=== PATIENT | female | born 1980 | race Caucasian/White ===

== ENCOUNTER 2017-11-07 01:24 | Inpatient (IN) | payer OTHER ==
[~2017-11-07] VITALS: Ht 165.1 cm; Wt 79.1 kg
[2017-11-07] MEDS ORDERED: D5%-LACTATED RINGERS 1,000 ML IV SCH (01:45)
[2017-11-07] MEDS ORDERED: OXYTOCIN 30U/ 0.9% NaCL 500ML 500 ML IV ONE (01:45)
[2017-11-07] MEDS: LACTATED RINGERS 1,000 ML IV SCH ×2 (01:50→02:02)
[2017-11-07] MEDS ORDERED: NEWBORN KIT ONE (01:57)
[2017-11-07] MEDS ORDERED: OXYTOCIN 30U/ 0.9% NaCL 500ML 500 ML ONE ×2 (01:57→06:00)
[2017-11-07] MEDS ORDERED: LIDOCAINE 1%, 20ML ONE (01:57)
[2017-11-07] MEDS ORDERED: MISOPROSTOL 200 MCG TABLET ONE (01:57)
[2017-11-07] MEDS ORDERED: FENTANYL PF 100 MCG/2ML IV PRN (02:00)
[2017-11-07] MEDS ORDERED: ONDANSETRON 2MG/ML, 2ML IVPush PRN (02:00)
[2017-11-07] MEDS ORDERED: TERBUTALINE 1 MG/ML, 1ML IVPush PRN (02:00)
[2017-11-07] MEDS ORDERED: CALCIUM CARBONATE 500 MG TAB.CHEW PO PRN (02:00)
[2017-11-07] MEDS ORDERED: FENTANYL PF 100 MCG/2ML IVPush PRN (02:00)
[2017-11-07] MEDS ORDERED: ALUMINUM/MAG/SIMETHICONE 30 ML UDC PO PRN (02:00)
[2017-11-07] MEDS ORDERED: SODIUM CITRATE/CITRIC ACID 30 ML UDC PO PRN (02:00)
[2017-11-07] MEDS ORDERED: PENICILLIN GK 5,000,000 UNITS in SODIUM CHLORIDE 0.9% 100 ML IVPB ONE (02:00)
[2017-11-07] MEDS ORDERED: METOCLOPRAMIDE 5 MG/ML, 2ML IVPush PRN (02:00)
[2017-11-07 02:27] VITALS: BP 131/72
[2017-11-07 02:32] LABS: BASOPHILS # (AUTO) 0.02 x10^3/uL (0-0.1); BASOPHILS % (AUTO) 0 % (0-1); EOSINOPHILS # (AUTO) 0.05 x10^3/uL (0-0.4); EOSINOPHILS % (AUTO) 1 % (1-7); LYMPHOCYTES % (AUTO) 13 % (22-44); MD NO; MEAN CORPUSCULAR HEMOGLOBIN 31.2 pg (27.0-34.8); MEAN CORPUSCULAR HGB CONC 33.9 g/dL (32.4-35.8); MEAN PLATELET VOLUME 8.9 fL (7.4-10.4); MONOCYTES # (AUTO) 0.83 x10^3/uL (0.2-0.8); MONOCYTES % (AUTO) 10 % (2-9); NEUTROPHILS # (AUTO) 6.47 x10^3/uL (1.8-6.8); NEUTROPHILS % (AUTO) 76 % (42-75); PLATELET COUNT 161 x10^3/uL (130-400); RED BLOOD COUNT 4.25 x10^6/uL (3.82-5.3); RED CELL DISTRIBUTION WIDTH 13.2 % (9.6-15.2)
[2017-11-07] MEDS ORDERED: IBUPROFEN 600 MG TABLET ONE (05:56)
[2017-11-07] MEDS ORDERED: OXYcodone/APAP 5/325MG TABLET PO PRN ×2 (06:00)
[2017-11-07] MEDS ORDERED: MISOPROSTOL 200 MCG TABLET PR PRN (06:00)
[2017-11-07] MEDS ORDERED: ONDANSETRON 2MG/ML, 2ML IV PRN (06:00)
[2017-11-07] MEDS ORDERED: DOCUSATE 100 MG CAPSULE PO PRN (06:00)
[2017-11-07] MEDS ORDERED: PENICILLIN GK 2,500,000 UNITS in DEXTROSE 5% 100 ML IV SCH (06:00)
[2017-11-07] MEDS ORDERED: METHYLERGONOVINE 0.2 MG/ML IM PRN (06:00)
[2017-11-07] MEDS ORDERED: ACETAMINOPHEN 325 MG TABLET PO PRN ×2 (06:00)
[2017-11-07] MEDS: OXYTOCIN 30U/ 0.9% NaCL 500ML 500 ML IV SCH ×2 (06:02→15:32)
[2017-11-07] MEDS: IBUPROFEN 600 MG TABLET PO PRN (06:02)
[2017-11-07 08:30] VITALS: BP 133/84
[2017-11-07] MEDS: PRENATAL VIT/IRON/FA 1 EACH TABLET PO SCH (10:09)
[2017-11-07 12:01] VITALS: BP 128/80
[2017-11-07 17:06] VITALS: BP 134/84
[2017-11-07 19:29] LABS: BASOPHILS # (AUTO) 0.01 x10^3/uL (0-0.1); BASOPHILS % (AUTO) 0 % (0-1); EOSINOPHILS # (AUTO) 0.02 x10^3/uL (0-0.4); EOSINOPHILS % (AUTO) 0 % (1-7); LYMPHOCYTES % (AUTO) 10 % (22-44); MD NO; MEAN CORPUSCULAR HEMOGLOBIN 31.7 pg (27.0-34.8); MEAN CORPUSCULAR HGB CONC 33.7 g/dL (32.4-35.8); MEAN CORPUSCULAR VOLUME 93.9 fL (80-100); MEAN PLATELET VOLUME 8.9 fL (7.4-10.4); MONOCYTES # (AUTO) 1.26 x10^3/uL (0.2-0.8); MONOCYTES % (AUTO) 12 % (2-9); NEUTROPHILS # (AUTO) 8.14 x10^3/uL (1.8-6.8); NEUTROPHILS % (AUTO) 78 % (42-75); PLATELET COUNT 160 x10^3/uL (130-400); RED BLOOD COUNT 4.28 x10^6/uL (3.82-5.3); RED CELL DISTRIBUTION WIDTH 13.5 % (9.6-15.2)
[2017-11-07 19:40] VITALS: BP 117/69
[2017-11-07 23:14] VITALS: BP 116/77
[2017-11-08] MEDS: OXYTOCIN 30U/ 0.9% NaCL 500ML 500 ML IV SCH ×3 (01:48→21:48)
[2017-11-08] MEDS: PRENATAL VIT/IRON/FA 1 EACH TABLET PO SCH (08:55)
[2017-11-08 09:00] VITALS: BP 113/76
[2017-11-08 12:20] VITALS: BP 120/79
[2017-11-08 19:20] VITALS: BP 118/81
[2017-11-08] MEDS: IBUPROFEN 600 MG TABLET PO PRN (23:18)
[2017-11-09] MEDS ORDERED: IBUP-1222 PO (05:59)
[2017-11-09 07:30] VITALS: BP 114/78
[2017-11-09] MEDS: PRENATAL VIT/IRON/FA 1 EACH TABLET PO SCH (07:39)
[2017-11-09] MEDS: OXYTOCIN 30U/ 0.9% NaCL 500ML 500 ML IV SCH (07:39)
== END 2017-11-09 09:29 | disposition home or self-care (01) | DRG 775 ==
LOC: LDOP 01:24 → LDIP 02:11 → 2NW 08:20
PROVIDERS: ADMIT Student in an Organized Health Care Education/Training Program; ATTEND Student in an Organized Health Care Education/Training Program
PROC: 10E0XZZ Delivery of Products of Conception, External Approach (ICD-10-PCS; principal; 2017-11-07)
DX: O99.824 Streptococcus B carrier state complicating childbirth (principal); Z37.0 Single live birth; Z3A.39 39 weeks gestation of pregnancy
CPT/HCPCS: 36415; 59025; 85025; 86850; 86900; 89060; 99201; J2540; G0463; J2590; J7120; Q0114